=== PATIENT | female | born 1965 | race Two or more races ===

== ENCOUNTER 2024-06-18 15:01 | Outpatient (AMB) | payer BC, SELFPAY ==
[2024-06-18 15:39] VITALS: BP 148/86; PULSE 88; RESP 19; TEMP 36.7; O2SAT 97; BMI 46.6
--- NOTE | 2024-06-18 15:39 | PD.GSCLVISIT ---
Vital Signs - [facility] 06/18/24 15:39 Height 1.6 m Height Method Stated Weight 119.408 kg Weight Measurement Method Standing Scale BMI 46.6 BP 148/86 H Blood Pressure Source Automatic Cuff Blood Pressure Location Right Upper Arm Position Sitting Respiration 19 Pulse 88 Pulse Source Monitor Temp 98.0 F Temp Source Temporal Artery Scan Pulse Oximetry (%) 97 Oxygen Delivery Method Room Air Med/Allergies Allergies & Medications Allergies No Known Allergies Allergy (Verified 06/18/24 15:40) Medication Reconciliation metformin 500 mg tablet 500 mg PO QDAY 04/11/24 [History Confirmed 06/18/24] tramadol 50 mg tablet 50 mg PO BID PRN 04/11/24 [History Confirmed 06/18/24] MA Intake Visit Data Collection New Patient or Established: Established Patient (seen at [facility] within 3 years) Seen by Clinical Staff ONLY (RN/NELLY): No Reason for Visit:: MRI RESULTS Pain Present Currently: No Lead Business Systems Analyst Required: Yes PCP or OBGYN visit in last 3 months: Yes Hx Now: No Do You Feel Safe at Home: Yes Authorities Contacted: N/A Smoking Status Smoking Status: Never smoker Immunization / Flu Flu Vaccine in the Last 12 Months: Yes Flu Vaccine Exclusion Criteria: Already Received Past Medical History Past Medical History RESPIRATORY: Negative Smoking or Smoking Exposure Social History SMOKING STATUS: Smoking status: Never smoker HPI HPI Narrative Spoke to pt with in-person senior benefits specialist 58F with HTN, DMII here for follow up of posterior neck mass. Pt reports it remains very bothersome, making it difficult for her to lie down and sleep. She denies any new complaints ROS Review of Systems Systems Reviewed: All systems reviewed, normal except as documented Objective/Exam General General Appearance: alert, cooperative and well groomed Resp Respiratory exam: Absent respiratory distress Back Back exam: Present other (upper back with large lipoma in the center, no overlying skin changes) Results MRI showing fatty deposition Assessment & Plan Diagnosis / Problem List (1) Neck mass: Status: Acute Assessment & Plan: 58F with HTN, DMII here for follow up of posterior neck mass consistent with a lipoma. I explained benefits/risks of excision including bleeding and infection. Pt expressed understanding and agrees to proceed Office Procedures GNS Level of Care Nursing/Assessment Patient Status: Established Patient Nursing Assessment/Reassesment: Medication Reconciliation, Update PMH in EMR and Vital Signs Coordination of Care: Complex Care and Chronic Disease 1-5, Education Complex Pt/Fam, Consent,records obtained, informed consent, Results/Orders obtained and Staff clarify orders Special Needs: Language special needs Established Patient Charge Established Patient Point Assignment: 95 Established Patient Point Charge: EP Level 3 (80-115) Patient Portal Questionaires Social History Tobacco History Smoking Status: Never smoker Domestic Abuse History Do You Feel Safe at Home: Yes Review of Systems Report any current symptoms Only answer those that you have currently: Past Medical History Past Medical History Have you ever been diagnosed with any of the following: Respiratory Problems Smoking: No Smoking Exposure: No
== END 2024-06-18 16:25 | disposition home or self-care (01) ==
LOC: HODSRG 15:01
PROVIDERS: PCP Nurse Practitioner Family; Referring Provider Nurse Practitioner Family; Supervising Provider Surgery; Visit Provider Surgery
DX: R22.1 Localized swelling, mass and lump, neck (principal)
CPT/HCPCS: 99213; G0463

== ENCOUNTER 2024-07-17 15:02 | Outpatient (AMB) | payer BC, SELFPAY ==
--- NOTE | 2024-07-17 15:35 | PD.ORTHCLVIS ---
Med/Allergies Allergies & Medications Allergies No Known Allergies Allergy (Verified 07/17/24 10:23) Subjective Visit Visit for: knee (RIGHT KNEE PAIN) Immunization / Flu Flu Vaccine in the Last 12 Months: No Flu Vaccine Exclusion Criteria: Refused by Patient History of Present Illness Chief complaint: Right knee pain Patient is a 58-year-old female who have seen in the past for severe right knee arthritis. We have done 3 prior injections in the past. She is also tried anti-inflammatories. We will continue with nonoperative treatment because of her weight. The injections lasted 2 months in the past Pain Pain level (0-10): 8 Pain duration: CONSTANT Pain location: inside (medial), outside (lateral) and posterior Pain quality: sharp and aching Pain timing: night, increases with activity and stairs Associated signs & symptoms: numbness, weakness and stiffness Ambulatory data Ambulatory device: none Treatments Improvement with previous injections: No Improvement with PT: No Improvement with NSAIDS: no Review of Systems Review of Systems: All systems negative unless otherwise noted in HPI. Exam Exam Patient is in no acute distress and is cooperative with the examination today. Breathing is nonlabored. Patient has a normal mood and affect. Bilateral extremities were evaluated and demonstrates sensation intact to light touch. Palpable pedal pulses are present. No significant edema is present. Bilateral hips were examined. The patient has no pain with log roll of the hips. Internal rotation to 30 degrees and external rotation to 30 degrees is painless. Negative FADIR. Left knee was examined today. The left knee is in reasonable alignment. Range of motion from 0-120 degrees. Knee is stable to varus and valgus as well as AP translation with <5mm. Patient has a negative McMurrays. There is no pain with patellofemoral compression and no crepitus noted. The knee is nontender to palpation. The right knee was also examined. The right knee is in varus alignment. Range of motion from 0-115 degrees. Knee is stable to varus and valgus as well as AP translation with <5mm. Patient has a negative McMurrays. There is no pain with patellofemoral compression and no crepitus noted. The knee is tender to palpation medially. X-rays demonstrate severe arthritis with complete obliteration of the medial joint space and osteophytes. Assessment and Plan Problem List (1) Arthritis of right knee: Status: Acute Plan: Patient is a 58-year-old female with severe right knee arthritis. She had a fall recently. We Will get bilateral knee x-rays to make sure there is no fracture. We will likely recommend injections after her recent surgery for her neck Past Medical History Past Medical History Have you ever been diagnosed with any of the following: Cardiology Problems Angina: Yes (Mild and short episodes. MD told her is stress related) Congestive Heart Failure: No Hypertension: Yes Respiratory Problems Chronic Obstructive Pulmonary Disease (COPD): No Smoking: No Smoking Exposure: No Stomache/Intestinal Problems Hepatitis: No Genital/Urinary Problems Renal Disease: No Reproductive Problems Previous Pregnancies: Yes (x5) Musculoskeletal Problems Arthritis: Yes Endocrine Problems Diabetes Mellitus Type 1: No Diabetes Mellitus Type 2: Yes Psychologic Problems Anxiety: Yes Other Problems Falls: Yes Blood Transfusions: No Anesthesia Reactions: No Chemotherapy: No Radiation Therapy: No Chicken Pox: Yes Measles: Yes Mumps: Yes Cancer: No
[2024-07-17 15:41] VITALS: BP 167/83; PULSE 74; RESP 19; TEMP 36.4; O2SAT 95; BMI 46.4
--- NOTE | 2024-07-17 15:47 | PD.ORTHCLVIS ---
Vital signs 07/17/24 15:41 Height 1.6 m Height Method Stated Weight 118.926 kg Weight Measurement Method Standing Scale BMI 46.4 BP 167/83 H Blood Pressure Source Automatic Cuff Blood Pressure Location Left Upper Arm Position Sitting Respiration 19 Pulse 74 Pulse Source Monitor Temp 97.6 F Temp Source Temporal Artery Scan Pulse Oximetry (%) 95 Oxygen Delivery Method Room Air Med/Allergies Allergies & Medications Allergies No Known Allergies Allergy (Verified 07/17/24 15:47) Medication Reconciliation metformin 500 mg tablet 500 mg PO HS 04/11/24 [History Confirmed 07/17/24] tramadol 50 mg tablet 50 mg PO BID PRN Pain, Moderate 04/11/24 [History Confirmed 07/17/24] losartan 50 mg tablet 50 mg PO HS 07/17/24 [History Confirmed 07/17/24] meloxicam 7.5 mg tablet 7.5 mg PO QDAY PRN Pain, Mild 07/17/24 [History Confirmed 07/17/24] Subjective Visit Visit for: follow up visit and knee Immunization / Flu Flu Vaccine in the Last 12 Months: No Flu Vaccine Exclusion Criteria: No Exclusion Criteria Pain Pain level (0-10): 6 Pain duration: WITH MOVEMENT Pain location: inside (medial) Pain quality: aching Pain timing: increases with activity Associated signs & symptoms: numbness, weakness and stiffness Ambulatory data Ambulatory device: none Treatments Improvement with previous injections: No Improvement with PT: No Improvement with NSAIDS: no Review of Systems Review of Systems: All systems negative unless otherwise noted in HPI. Assessment and Plan Problem List (1) Arthritis of right knee: Status: Acute Office Procedures GNS Level of Care Nursing/Assessment Patient Status: Established Patient Nursing Assessment/Reassesment: Medication Reconciliation, Update PMH in EMR and Vital Signs Coordination of Care: Complex Care and Chronic Disease 1-5, Education Complex Pt/Fam, Consent,records obtained, informed consent, 1 Ins Authorization, Lab and Imaging orders, Results/Orders obtained and Staff clarify orders Special Needs: Language special needs Established Patient Charge Established Patient Point Assignment: 125 Established Patient Point Charge: EP Level 3 (80-115) Past Medical History Past Medical History Have you ever been diagnosed with any of the following: Cardiology Problems Angina: Yes (Mild and short episodes. told her is stress related) Congestive Heart Failure: No Hypertension: Yes Respiratory Problems Chronic Obstructive Pulmonary Disease (COPD): No Smoking: No Smoking Exposure: No Stomache/Intestinal Problems Hepatitis: No Genital/Urinary Problems Renal Disease: No Reproductive Problems Previous Pregnancies: Yes (x5) Musculoskeletal Problems Arthritis: Yes Endocrine Problems Diabetes Mellitus Type 1: No Diabetes Mellitus Type 2: Yes Psychologic Problems Anxiety: Yes Other Problems Falls: Yes Blood Transfusions: No Anesthesia Reactions: No Chemotherapy: No Radiation Therapy: No Chicken Pox: Yes Measles: Yes Mumps: Yes Cancer: No
== END 2024-07-17 15:40 | disposition home or self-care (01) ==
LOC: HODSRG 15:02
PROVIDERS: PCP Nurse Practitioner Family; Referring Provider Nurse Practitioner Family; Supervising Provider Orthopaedic Surgery Adult Reconstructive Orthopaedic Surgery; Visit Provider Orthopaedic Surgery Adult Reconstructive Orthopaedic Surgery
DX: M17.11 Unilateral primary osteoarthritis, right knee (principal); I10 Essential (primary) hypertension
CPT/HCPCS: 99213; G0463

== ENCOUNTER → 2024-07-17 | Outpatient (CLI) | payer BC, SELFPAY ==
--- NOTE | 2024-07-17 15:56 | XR_ITS ---
Examination: Bilateral knees 2 views Right lateral knee left lateral knee 2 views Bilateral axial knees single view TECHNIQUE: Bilateral AP knees standing single view, bilateral PA knees standing single view 30 degrees flexion Staining right lateral knee left lateral knee 2 views Bilateral axial knees single view total 5 views Exam date and time: July 17, 2024 1717 hours INDICATIONS: Patient fell 7 days ago with injury to both knees, bilateral knee pain FINDINGS: Significant osteopenia No fracture or dislocation involving either knee Advanced narrowing medial joint spaces, [id number] medial joint space left knee Advanced osteoarthritis lateral patellofemoral joints bilaterally No patellar dislocation IMPRESSION: No knee fractures Advanced tricompartment osteoarthritis, [id number] narrowing medial joint space left knee
== END | disposition home or self-care (01) ==
PROVIDERS: PCP Nurse Practitioner Family; Referring Provider Orthopaedic Surgery Adult Reconstructive Orthopaedic Surgery; Visit Provider Orthopaedic Surgery Adult Reconstructive Orthopaedic Surgery
DX: M17.12 Unilateral primary osteoarthritis, left knee (principal); S89.92XA Unspecified injury of left lower leg, initial encounter; S89.91XA Unspecified injury of right lower leg, initial encounter; W19.XXXA Unspecified fall, initial encounter
CPT/HCPCS: 73564

== ENCOUNTER 2024-07-18 09:05 | Day surgery (SDC) | payer BC, SELFPAY ==
[2024-07-17 10:27] VITALS: BMI 45.0
--- NOTE | 2024-07-17 10:42 | EKG_ITS ---
[facility] Test Date: 2024-07-17 Pat Name: ARJUN TUCKER Department: Room: - Gender: Female Health Safety Coordinator: GOLD : 1965 Requested By: Caesar Chávez Order Number: [id number] Reading MD: Caesar Chávez Measurements Intervals [place] Rate: 76 P: 50 TN: 159 QRS: 14 QRSD: 77 T: 24 QT: 365 QTc: 410 Interpretive Statements SINUS RHYTHM NONSPECIFIC T-WAVE ABNORMALITY No previous ECG available for comparison /[id number]/S0/[id number]
[2024-07-17 11:27] LABS: Basophils # (Auto) 0.1 Thou/mm3 (0.0-0.2); Basophils % (Auto) 1 % (0-2.5); Eosinophils # (Auto) 0.2 Thou/mm3 (0.0-0.5); Eosinophils % (Auto) 2 % (0-10); Hematocrit 42.9 % (36.0-46.0); Hemoglobin 13.7 g/dL (12.0-16.0); Immature Granulocytes % (Auto) 1 % (0-0); Immature Granulocytes Auto 0.05 Thou/mm3 (0.00-0.00); Lymphocytes # (Auto) 2.5 Thou/mm3 (1.0-4.8); Lymphocytes % (Auto) 23 % (10-50); Mean Corpuscular HGB Conc 31.9 g/dl (31.0-37.0); Mean Corpuscular Hemoglobin 27.4 pg (25.0-35.0); Mean Corpuscular Volume 86 fL (80-100); Monocytes # (Auto) 0.9 Thou/mm3 (0.0-0.8); Monocytes % (Auto) 8 % (0-12); Neutrophils # (Auto) 7.2 Thou/mm3 (1.8-7.7); Neutrophils % (Auto) 66 % (37-80); Nucleated Red Blood Cell % 0 /100 WBC (0); Platelet Count 291 Thou/mm3 (140-440); RDW Standard Deviation 44.2 fL (36.4-46.3); White Blood Count 10.9 Thou/mm3 (3.6-11.0)
[2024-07-17 11:43] LABS: Partial Thromboplastin Time 25.6 Seconds (22.0-36.0); Prothrombin Time 10.8 Seconds (9.0-12.2)
[2024-07-17 11:59] LABS: Alanine Aminotransferase 18 U/L (10-49); Albumin, Serum 4.6 gm/dL (3.5-5.0); Albumin/Globulin Ratio 1.8 (1.2-2.2); Alkaline Phosphatase 109 U/L (46-116); Anion Gap 8 (7-16); Aspartate Amino Transferase 21 U/L (0-34); BUN/Creatinine Ratio 14 Ratio (12-20); Bilirubin,Total 0.4 mg/dL (0.3-1.2); Blood Urea Nitrogen 11 mg/dL (9-23); Calcium 9.8 mg/dL (8.3-10.6); Calcium (Corrected) 9.8 mg/dL (8.5-10.1); Carbon Dioxide 27.7 mMol/L (20.0-31.0); Chloride 103 mMol/L (98-107); Creatinine (Component) 0.8 mg/dL (0.6-1.3); Estimated Creatinine Clearance 96.2 mL/min (>60); Globulin 2.6 gm/dL (2.3-3.5); Glucose 154 mg/dL (74-106); Osmolality,Calculated 279 (275-295); Potassium 3.8 mMol/L (3.4-5.1); Sodium 139 mMol/L (136-145); Total Protein 7.2 gm/dL (5.7-8.2); eGFR > 60 See Note
[2024-07-18] VITALS (10 sets, daily range): BP systolic 120–160; BP diastolic 57–93; PULSE 68–93; RESP 12–19; TEMP 36.2–36.6; O2SAT 93–99; BMI 44.8
[2024-07-18] MEDS: RINGERS LACTATED 500 ML 500 ML 20 ML IV (09:44)
--- NOTE | 2024-07-18 14:23 | SUR.PHASEI ---
1423: Pt. wakes to name then drifts back to sleep, vitals stable, breathing unlabored, no signs of distress, dressing to upper back CDI, no active bleed noted, report received from Asif JENSEN and Curtis GARCÍA.
--- NOTE | 2024-07-18 14:35 | PD.SUROPNT ---
Date of Procedure 07/18/24 Pre Op Diagnosis Upper back lipoma Post Op Diagnosis Same Procedure Excision of upper back lipoma Findings Large upper back lipoma removed in 2 pieces Procedure Description After discussion of risk and benefits, patient was brought to the operating room, SCDs were placed and general anesthesia was induced. She received preoperative antibiotics and was placed in right lateral decubitus position with proper padding. Patient was prepped and draped in usual sterile fashion. After timeout a transverse elliptical incision was planned at the upper back lipoma site. The incision was 6 cm in transverse dimension and 2 cm in craniocaudal dimension. The incision was infiltrated with half percent Marcaine and skin was incised with a #15 blade. The tissues were dissected with electrocautery and the lipoma was soon encountered. The lipoma was dissected from surrounding tissues circumferentially using electrocautery. A large portion was removed intact. Additional portion was seen on the left lateral aspect of the incision and this was again excised circumferentially with electrocautery. The wound bed was irrigated and hemostasis was achieved with electrocautery. The incision was closed with 2-0 Vicryl interrupted sutures followed by 4-0 nylon interrupted sutures. The incision was covered with Telfa, gauze and Tegaderm. Patient was returned to supine position and extubated without complication. She was brought to PACU in stable condition Pathology / specimen Other (Upper back lipoma) Estimated Blood Loss 25 Surgeon Rena Sanders MD Surgical Staff Operation Date: 07/18/24 11:15 Case Staff BEHAVIORAL HEALTH CASE MANAGER: Robert Delacruz RN First Assistant: Mariann Toney
--- NOTE | 2024-07-18 14:37 | ESDS_ITS ---
Planned Discharge Date 07/18/24 DS: Providers Provider Primary care physician: [facility] Attending Provider on Admission: Rena Sanders MD Attending Provider on DC: Rena Sanders MD Discharging Provider: Rena Sanders MD Diagnosis Discharge Diagnosis (1) Neck mass: Status: Acute Problem List Completed Was Problem List Reviewed/Reconciled?: Yes Exam Vital Signs Temp Pulse Resp BP Pulse Ox O2 Flow Rate 97.1 F 84 14 157/90 H 98 6 07/18/24 14:23 07/18/24 14:23 07/18/24 14:23 07/18/24 14:23 07/18/24 14:23 07/18/24 14:23 Constitutional Constitutional: no acute distress Routine Respiratory Exam Respiratory: Present no resp distress Discharge Plan Plan Patient Disposition: HOME (Self Care) Prescriptions/Referrals Prescriptions/Med Rec: New tramadol 50 mg tablet 50 mg PO Q8H PRN (Reason: pain) Qty: 10 0RF No Action metformin 500 mg tablet 500 mg PO HS tramadol 50 mg tablet 50 mg PO BID PRN (Reason: Pain, Moderate) losartan 50 mg tablet 50 mg PO HS Patient Comments: take 1 tablet by mouth once daily meloxicam 7.5 mg tablet 7.5 mg PO QDAY PRN (Reason: Pain, Mild) Patient Comments: take 1 tablet by mouth once daily Referrals: Rena Sanders MD [Physician] - (You will receive a phone call to confirm a follow-up appointment with me in 2 weeks) [facility] [Primary Care Provider] - Patient/Caregiver Discharge Instructions Other Discharge Activity Instructions:: You may remove your outer dressing and resume showering on 07/20 Otherwise keep incision clean and dry If you develop worsening pain, fever, redness or drainage please call the office or seek care in ER Your stitches will be removed at your follow-up appointment Education Materials: Incision Care Print Language: Serbian Stand Alone Forms: Rajwinder Award Info., Patient Portal Info Letter Discharge Order Discharge Orders: Discharge (Routine); Ordered 07/18/24 Ordered By: Rena Sanders Results Results: Laboratory Laboratory results: results reviewed Results: Imaging Imaging narrative: MRI reviewed Procedures Procedure Date 07/18/24 Procedures Excision of upper back lipoma
[2024-07-18] MEDS: HYDROmorphone INJ 2 MG/ML VIAL 0.4 MG IVP ×2 (14:54→15:06)
[2024-07-18] MEDS: ONDANSETRON INJ 2 MG/ML INJ 2 ML 4 MG IVP (15:28)
--- NOTE | 2024-07-18 16:00 | SUR.PHASEII ---
1600: Pt. AAOx4, vitals stable, breathing unlabored, no complaint of pain or nausea, dressing to posterior neck CDI, no active bleed noted, pt. tolerated sips of water well, pt. ambulated to wheelchair with minimal assist and steady gait, gave discharge instructions to the pt. and her ride, both verbalized understanding and had no further questions. Pt. left with all personal belongings. Pt. took awhile to leave due to her being extremely tired and not being able to stand up with first attempt of getting her to go home. Nurse let pt. rest a little longer and was successful with second attempt and discharging pt.
== END 2024-07-18 16:00 | disposition home or self-care (01) ==
PROVIDERS: Anesthesiology; PCP Nurse Practitioner Family; Referring Provider Surgery; Visit Provider Surgery
PROC: (CPT 21930; principal; 2024-07-18 11:00)
DX: D17.1 Benign lipomatous neoplasm of skin and subcutaneous tissue of trunk (principal); Z01.810 Encounter for preprocedural cardiovascular examination
CPT/HCPCS: 21930; 36415; 80048; 80053; 85025; 85610; 85730; 93005; A4649; J0131; J0690; J1885; J2250; J2405; J2704; J3010; J3490; J7120

== ENCOUNTER 2024-08-02 13:03 | Outpatient (AMB) | payer BC, SELFPAY ==
--- NOTE | 2024-08-02 13:11 | GSCOFFNT_ITS ---
Vital Signs - [facility] 08/02/24 13:12 Height 1.63 m Height Method Stated Weight 118.87 kg Weight Measurement Method Standing Scale BMI 44.7 BP 165/88 H Blood Pressure Source Automatic Cuff Blood Pressure Location Right Upper Arm Position Sitting Respiration 18 Pulse 92 Pulse Source Monitor Temp 97.5 F Temp Source Temporal Artery Scan Pulse Oximetry (%) 97 Oxygen Delivery Method Room Air Med/Allergies Allergies & Medications Allergies No Known Allergies Allergy (Verified 08/02/24 13:12) Medication Reconciliation metformin 500 mg tablet 500 mg PO HS 04/11/24 [History Confirmed 08/02/24] tramadol 50 mg tablet 50 mg PO BID PRN Pain, Moderate 04/11/24 [History Confirmed 08/02/24] losartan 50 mg tablet 50 mg PO HS 07/17/24 [History Confirmed 08/02/24] meloxicam 7.5 mg tablet 7.5 mg PO QDAY PRN Pain, Mild 07/17/24 [History Confirmed 08/02/24] tramadol 50 mg tablet 50 mg PO Q8H PRN pain #10 tabs 07/18/24 [Rx Confirmed 08/02/24] MA Intake Visit Data Collection New Patient or Established: Established Patient (seen at [facility] within 3 years) Seen by Clinical Staff ONLY (RN/MA): No Reason for Visit:: FOLLOW UP NECK LUMP REMOVAL Pain Present Currently: Yes Pain Location: Unable to identify Pain scale:: 8 Impregnator And Drier Helper Required: Yes PCP or OBGYN visit in last 3 months: Yes Hx Now: No Do You Feel Safe at Home: Yes Authorities Contacted: N/A Smoking Status Smoking Status: Never smoker Immunization / Flu Flu Vaccine in the Last 12 Months: Yes Flu Vaccine Exclusion Criteria: Already Received Past Medical History Past Medical History NEUROLOGIC: Negative Neurological Disorders or Seizures CARDIAC: Positive Cardiac Disorders, Angina (Mild and short episodes. told her is stress related) and Hypertension; Negative Congestive Heart Failure RESPIRATORY: Negative Chronic Obstructive Pulmonary Disease (COPD), Smoking or Smoking Exposure GASTROINTESTINAL: Negative Gastrointestinal Disorders or Hepatitis GENITOURINARY: Negative Genitourinary Disorders or Renal Disease REPRODUCTIVE: Positive Previous Pregnancies (x5) MUSCULOSKELETAL: Positive Arthritis ENDOCRINE: Positive Endocrine Disorders and Diabetes Mellitus Type 2; Negative Diabetes Mellitus Type 1 HEMATOLOGIC: Negative Blood Disorders PSYCHO/SOCIAL: Positive Anxiety OTHER HISTORY: Positive Falls, Chicken Pox, Measles and Mumps; Negative Autoimmune Disease, Blood Transfusions, Blood Transfusion Reaction, Anesthesia Reactions, Chemotherapy, Radiation Therapy or Cancer Family History FAMILY HISTORY: Negative Family Cardiac Disorders or Family Anesthesia Reaction Surgical History SURGICAL: Positive Tubal Ligation and Section (x3) Social History SMOKING STATUS: Smoking status: Never smoker ALCOHOL: Alcohol Intake: Never HOUSING: Housing: Apartment HPI HPI Narrative 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 Pt reports since surgery she has had difficulty lifting her right arm all the way, but this has gradually improved. She has some pain at the incision site which is mild, and has not had any drainage although feels that there is subcutaneous fluid. Overall she feels better now that the lesion is out ROS Review of Systems Systems Reviewed: All systems reviewed, normal except as documented Objective/Exam General General Appearance: alert, cooperative and well groomed Neck Neck exam: Present other Resp Respiratory exam: Absent respiratory distress Back Back exam: Present other (upper back incision with minimal surrounding erythema, no fluctuance or tenderness, no drainage, sutures removed) Results Pathology of mass consistent with benign lipoma Assessment & Plan Diagnosis / Problem List (1) Lipoma of back: Status: Acute Assessment & Plan: 58F s/p excision of upper back lipoma 07/18 recovering well overall Plan: F/u in 2 weeks Office Procedures GNS Level of Care Nursing/Assessment Patient Status: Established Patient Nursing Assessment/Reassesment: Medication Reconciliation, Update PMH in EMR and Vital Signs Coordination of Care: Complex Care and Chronic Disease 1-5, Consent,records obtained, informed consent, Education Simp Pt/Fam, Results/Orders obtained and Staff clarify orders Special Needs: Language special needs Miscellaneous Interventions: Dressing placement or removal and Wound Cleaning/Preperation Established Patient Charge Established Patient Point Assignment: 135 Established Patient Point Charge: Level 4 (120-155) Patient Portal Questionaires Social History Living Situation History Housing: Apartment Tobacco History Smoking Status: Never smoker Alcohol History Alcohol Intake: Never Domestic Abuse History Do You Feel Safe at Home: Yes Review of Systems Report any current symptoms Only answer those that you have currently: Past Medical History Past Medical History Have you ever been diagnosed with any of the following: Neurological Problems Seizures: No Cardiology Problems Angina: Yes (Mild and short episodes. told her is stress related) Congestive Heart Failure: No Hypertension: Yes Respiratory Problems Chronic Obstructive Pulmonary Disease (COPD): No Smoking: No Smoking Exposure: No Stomache/Intestinal Problems Hepatitis: No Genital/Urinary Problems Renal Disease: No Reproductive Problems Previous Pregnancies: Yes (x5) Musculoskeletal Problems Arthritis: Yes Endocrine Problems Diabetes Mellitus Type 1: No Diabetes Mellitus Type 2: Yes Psychologic Problems Anxiety: Yes Other Problems Autoimmune Disease: No Falls: Yes Blood Transfusions: No Blood Transfusion Reaction: No Anesthesia Reactions: No Chemotherapy: No Radiation Therapy: No Chicken Pox: Yes Measles: Yes Mumps: Yes Cancer: No
[2024-08-02 13:12] VITALS: BP 165/88; PULSE 92; RESP 18; TEMP 36.4; O2SAT 97; BMI 44.7
== END 2024-08-02 13:22 | disposition home or self-care (01) ==
LOC: HODSRG 13:03
PROVIDERS: PCP Nurse Practitioner Family; Referring Provider Nurse Practitioner Family; Supervising Provider Surgery; Visit Provider Surgery
DX: Z48.817 Encounter for surgical aftercare following surgery on the skin and subcutaneous tissue (principal); D17.1 Benign lipomatous neoplasm of skin and subcutaneous tissue of trunk
CPT/HCPCS: 99214; G0463

== ENCOUNTER 2024-08-03 11:04 | Outpatient (AMB) | payer BC, SELFPAY ==
--- NOTE | 2024-08-03 11:01 | ORTHONT_ITS ---
Med/Allergies Allergies & Medications Allergies No Known Allergies Allergy (Verified 08/03/24 11:01) Medication Reconciliation metformin 500 mg tablet 500 mg PO HS 04/11/24 [History Confirmed 08/03/24] tramadol 50 mg tablet 50 mg PO BID PRN Pain, Moderate 04/11/24 [History Confirmed 08/03/24] losartan 50 mg tablet 50 mg PO HS 07/17/24 [History Confirmed 08/03/24] meloxicam 7.5 mg tablet 7.5 mg PO QDAY PRN Pain, Mild 07/17/24 [History Confirmed 08/03/24] tramadol 50 mg tablet 50 mg PO Q8H PRN pain #10 tabs 07/18/24 [Rx Confirmed 08/03/24] Subjective Visit Visit for: follow up visit and knee (BILATERAL) Immunization / Flu Flu Vaccine in the Last 12 Months: No Flu Vaccine Exclusion Criteria: Already Received History of Present Illness Chief complaint: Bilateral knee pain Patient is a pleasant 58-year-old female with bilateral knee pain and bilateral knee arthritis. She has tried multiple injections. She does have obesity and her BMI is 45. I discussed with her that she likely has to get to a BMI of 40 in order to get surgery in order to minimize complications. She has tried anti- inflammatories as well reports the pain is miserable Pain Pain level (0-10): 8 Pain duration: ALL DAY Pain location: inside (medial) and outside (lateral) Pain quality: dull and aching Pain timing: increases with activity Associated signs & symptoms: none Ambulatory data Ambulatory device: cane and none Treatments Improvement with previous injections: No Improvement with PT: No Improvement with NSAIDS: no Review of Systems Review of Systems: All systems negative unless otherwise noted in HPI. Assessment and Plan Problem List (1) Arthritis of right knee: Status: Acute Plan: Patient is a 58-year-old female with bilateral knee arthritis that is severe on x-rays. The right and left are equal severity. We discussed with her that this is typically treated nonoperatively at her current BMI as she is not a operative candidate. She is at high risk for infection if she were to get surgery at her current weight. We discussed nonoperative treatment including injections. Will give her a cortisone injection at the next visit Office Procedures GNS Level of Care Nursing/Assessment Patient Status: Established Patient Nursing Assessment/Reassesment: Medication Reconciliation, Update PMH in EMR and Vital Signs Coordination of Care: Complex Care and Chronic Disease 1-5, Education Complex Pt/Fam, Consent,records obtained, informed consent, Results/Orders obtained and Staff clarify orders Special Needs: Language special needs Established Patient Charge Established Patient Point Assignment: 95 Telehealth Telemed Phone/Video with patient at home & Dr,PA,MANUFACTURING MANAGEMENT ASSOCIATE: Yes
== END 2024-08-03 11:07 | disposition home or self-care (01) ==
LOC: HODSRG 11:04
PROVIDERS: PCP Nurse Practitioner Family; Referring Provider Nurse Practitioner Family; Supervising Provider Orthopaedic Surgery Adult Reconstructive Orthopaedic Surgery; Visit Provider Orthopaedic Surgery Adult Reconstructive Orthopaedic Surgery
DX: M17.0 Bilateral primary osteoarthritis of knee (principal); M25.562 Pain in left knee; M25.561 Pain in right knee; E66.01 Morbid (severe) obesity due to excess calories; Z68.42 Body mass index [BMI] 45.0-49.9, adult
CPT/HCPCS: 99212; G0463

== ENCOUNTER 2024-08-14 13:02 | Outpatient (AMB) | payer BC, SELFPAY ==
[2024-08-14 13:36] VITALS: BP 158/85; PULSE 90; TEMP 36.7; O2SAT 96; BMI 44.7
--- NOTE | 2024-08-14 13:36 | ORTHONT_ITS ---
Vital signs 08/14/24 13:36 Height 1.63 m Height Method Stated Weight 118.841 kg Weight Measurement Method Standing Scale BMI 44.7 BP 158/85 H Blood Pressure Source Automatic Cuff Blood Pressure Location Right Upper Arm Position Sitting Pulse 90 Pulse Source Monitor Temp 98.0 F Temp Source Temporal Artery Scan Pulse Oximetry (%) 96 Oxygen Delivery Method Room Air Med/Allergies Allergies & Medications Allergies No Known Allergies Allergy (Verified 08/14/24 13:38) Medication Reconciliation metformin 500 mg tablet 500 mg PO HS 04/11/24 [History Confirmed 08/14/24] tramadol 50 mg tablet 50 mg PO BID PRN Pain, Moderate 04/11/24 [History Confirmed 08/14/24] losartan 50 mg tablet 50 mg PO HS 07/17/24 [History Confirmed 08/14/24] meloxicam 7.5 mg tablet 7.5 mg PO QDAY PRN Pain, Mild 07/17/24 [History Confirmed 08/14/24] tramadol 50 mg tablet 50 mg PO Q8H PRN pain #10 tabs 07/18/24 [Rx Confirmed 08/14/24] Exam Exam Patient is in no acute distress and is cooperative with the examination today. Breathing is nonlabored. Patient has a normal mood and affect. Bilateral extremities were evaluated and demonstrates sensation intact to light touch. Palpable pedal pulses are present. No significant edema is present. Bilateral hips were examined. The patient has no pain with log roll of the hips. Internal rotation to 30 degrees and external rotation to 30 degrees is painless. Negative FADIR. Left knee was examined today. The left knee is in reasonable alignment. Range of motion from 0-120 degrees. Knee is stable to varus and valgus as well as AP translation with <5mm. Patient has a negative McMurrays. There is no pain with patellofemoral compression and no crepitus noted. The knee is nontender to palpation. The right knee was also examined. The right knee is in varus alignment. Range of motion from 0-115 degrees. Knee is stable to varus and valgus as well as AP translation with <5mm. Patient has a negative McMurrays. There is no pain with patellofemoral compression and no crepitus noted. The knee is tender to palpation medially. X-rays demonstrate severe arthritis with complete obliteration of the medial joint space and osteophytes. Assessment and Plan Problem List (1) Arthritis of right knee: Status: Acute Plan: Patient is a 58-year-old female with bilateral knee arthritis that is severe on x-rays. The right and left are equal severity. We discussed with her that this is typically treated nonoperatively at her current BMI as she is not a operative candidate. She is at high risk for infection if she were to get surgery at her current weight. We discussed nonoperative treatment including injections. Recommend knee cortisone injections as patient would like to proceed with conservative treatment at this time. The risks and benefits of the procedure were reviewed with the patient and patient gave verbal consent to continue with the procedure. Procedure: performed by Dr. Whelan Using sterile technique the Bilateral knees were thoroughly prepped with alcohol, and approximately 1 cc of Kenalog 40 mg/mL and 4 cc of 1% lidocaine was injected into each knee without resistance into the medial tibial femoral joint space. The patient tolerated the procedure. Office Procedures GNS Level of Care Nursing/Assessment Patient Status: Established Patient Nursing Assessment/Reassesment: Medication Reconciliation, Update PMH in EMR and Vital Signs Coordination of Care: Complex Care and Chronic Disease 1-5, Education Complex Pt/Fam, Consent,records obtained, informed consent, Results/Orders obtained and Staff clarify orders Special Needs: Language special needs Established Patient Charge Established Patient Point Assignment: 95 Established Patient Point Charge: EP Level 3 (80-115) Surgical Proc/IM SQ injection Major Surgical Procedure: Yes (BILATERAL KNEE INJECTIONS ) Medication Given Medication Given Medication Given: Yes Documented Dose Given: 8 Route: Infiitration Medication Given Medication Given Medication Given: Yes Documented Dose Given: 2 Route: Infiitration Office Meds Xylocaine 10 mg/mL (1 %) injection solution Performing Provider: Juan Whelan MD Performing Location: [facility] Administered by: Juan Whelan MD on 08/14/24 14:37 Dose Route Admin Location Dispensed Lot Number Expiration Date [facility] Nuclear [employer]iation [employer] 40 mL Infiltration 40 mL [id number] [employer] KABI triamcinolone acetonide 40 mg/mL suspension for injection Performing Provider: Juan Whelan MD Performing Location: [facility] Administered by: Juan Whelan MD on 08/14/24 14:37 Dose Route Admin Location Dispensed Lot Number Expiration Date [facility] Nuclear Radiation Engineer 80 mg intra-articular 2 mL [id number] AGUEDA PARENTERAL MA Intake Visit Data Collection New Patient or Established: Established Patient (seen at [facility] within 3 years) Reason for Visit:: REQ BILATERAL KNEE INJECTIONS Seen by Clinical Staff ONLY (RN/MA): No Verbal consent obtained for Telemed visit?: No Home Teaching Grades 9 Thru 12 Teacher Required: Yes PCP or OBGYN visit in last 3 months: Yes Hx Now: No Do You Feel Safe at Home: Yes Authorities Contacted: N/A Questionairres Past Medical History Past Medical History Have you ever been diagnosed with any of the following: Neurological Problems Seizures: No Cardiology Problems Angina: Yes (Mild and short episodes. told her is stress related) Congestive Heart Failure: No Hypertension: Yes Respiratory Problems Chronic Obstructive Pulmonary Disease (COPD): No Smoking: No Smoking Exposure: No Stomache/Intestinal Problems Hepatitis: No Genital/Urinary Problems Renal Disease: No Reproductive Problems Previous Pregnancies: Yes (x5) Musculoskeletal Problems Arthritis: Yes Endocrine Problems Diabetes Mellitus Type 1: No Diabetes Mellitus Type 2: Yes Psychologic Problems Anxiety: Yes Other Problems Falls: Yes Blood Transfusions: No Blood Transfusion Reaction: No Anesthesia Reactions: No Chemotherapy: No Radiation Therapy: No Chicken Pox: Yes Measles: Yes Mumps: Yes Cancer: No Surgical History Additional Surgical History: LIPOMA EXCISION SX 08/02/24 Subjective Visit Visit for: follow up visit, knee and injections Immunization / Flu Flu Vaccine in the Last 12 Months: No Flu Vaccine Exclusion Criteria: No Exclusion Criteria History of Present Illness Chief complaint: REQUESTING BILATERAL KNEE INJECTIONS Patient is a pleasant 58-year-old female with bilateral knee pain and bilateral knee arthritis. She has tried multiple injections. She does have obesity and her BMI is 45. I discussed with her that she likely has to get to a BMI of 40 in order to get surgery in order to minimize complications. She has tried anti- inflammatories as well reports the pain is miserable Pain Pain level (0-10): 4 Pain duration: CONSTANT Pain location: anterior and posterior Pain quality: sharp, dull and aching Pain timing: night, increases with activity and stairs Ambulatory data Ambulatory device: none Treatments Improvement with previous injections: No Improvement with PT: No Improvement with NSAIDS: n/a Review of Systems Review of Systems: All systems negative unless otherwise noted in HPI.
== END 2024-08-14 14:05 | disposition home or self-care (01) ==
LOC: HODSRG 13:02
PROVIDERS: PCP Nurse Practitioner Family; Referring Provider Nurse Practitioner Family; Supervising Provider Orthopaedic Surgery Adult Reconstructive Orthopaedic Surgery; Visit Provider Orthopaedic Surgery Adult Reconstructive Orthopaedic Surgery
DX: M17.0 Bilateral primary osteoarthritis of knee (principal); I10 Essential (primary) hypertension; E11.9 Type 2 diabetes mellitus without complications; E66.9 Obesity, unspecified; Z68.41 Body mass index [BMI] 40.0-44.9, adult
CPT/HCPCS: 20610; 99213; J3301; J3490; G0463

== ENCOUNTER 2024-08-30 12:58 | Outpatient (AMB) | payer BC, SELFPAY ==
[2024-08-30 13:06] VITALS: BP 143/74; PULSE 84; RESP 19; TEMP 36.6; O2SAT 97; BMI 43.9
--- NOTE | 2024-08-30 13:06 | GSCOFFNT_ITS ---
Vital Signs - [facility] 08/30/24 13:06 Height 1.63 m Height Method Stated Weight 116.715 kg Weight Measurement Method Standing Scale BMI 43.9 BP 143/74 H Blood Pressure Source Automatic Cuff Blood Pressure Location Right Upper Arm Position Sitting Respiration 19 Pulse 84 Pulse Source Monitor Temp 97.9 F Temp Source Temporal Artery Scan Pulse Oximetry (%) 97 Oxygen Delivery Method Room Air Med/Allergies Allergies & Medications Allergies No Known Allergies Allergy (Verified 08/30/24 13:07) Medication Reconciliation metformin 500 mg tablet 500 mg PO HS 04/11/24 [History Confirmed 08/30/24] tramadol 50 mg tablet 50 mg PO BID PRN Pain, Moderate 04/11/24 [History Confirmed 08/30/24] losartan 50 mg tablet 50 mg PO HS 07/17/24 [History Confirmed 08/30/24] meloxicam 7.5 mg tablet 7.5 mg PO QDAY PRN Pain, Mild 07/17/24 [History Confirmed 08/30/24] tramadol 50 mg tablet 50 mg PO Q8H PRN pain #10 tabs 07/18/24 [Rx Confirmed 08/30/24] MA Intake Visit Data Collection New Patient or Established: Established Patient (seen at [facility] within 3 years) Seen by Clinical Staff ONLY (RN/MA): No Reason for Visit:: 4 WEEK FOLLOW UP Pain Present Currently: Yes Pain Location: Back Pain scale:: 4 Pain Scale Used: Booth-Ferris/Numerical Serging Machine Operator Required: Yes PCP or OBGYN visit in last 3 months: Yes Hx Now: No Do You Feel Safe at Home: Yes Authorities Contacted: N/A Smoking Status Smoking Status: Never smoker Immunization / Flu Flu Vaccine in the Last 12 Months: No Flu Vaccine Exclusion Criteria: No Exclusion Criteria Past Medical History Past Medical History NEUROLOGIC: Negative Neurological Disorders or Seizures CARDIAC: Positive Cardiac Disorders, Angina (Mild and short episodes. told her is stress related) and Hypertension; Negative Congestive Heart Failure RESPIRATORY: Negative Chronic Obstructive Pulmonary Disease (COPD), Smoking or Smoking Exposure GASTROINTESTINAL: Negative Gastrointestinal Disorders or Hepatitis GENITOURINARY: Negative Genitourinary Disorders or Renal Disease REPRODUCTIVE: Positive Previous Pregnancies (x5) MUSCULOSKELETAL: Positive Arthritis ENDOCRINE: Positive Endocrine Disorders and Diabetes Mellitus Type 2; Negative Diabetes Mellitus Type 1 HEMATOLOGIC: Negative Blood Disorders PSYCHO/SOCIAL: Positive Anxiety OTHER HISTORY: Positive Falls, Chicken Pox, Measles and Mumps; Negative Autoimmune Disease, Blood Transfusions, Blood Transfusion Reaction, Anesthesia Reactions, Chemotherapy, Radiation Therapy or Cancer Family History FAMILY HISTORY: Negative Family Cardiac Disorders or Family Anesthesia Reaction Surgical History SURGICAL: Positive Tubal Ligation and Section (x3) Social History SMOKING STATUS: Smoking status: Never smoker ALCOHOL: Alcohol Intake: Never HOUSING: Housing: Apartment HPI HPI Narrative Spoke to pt with in-person erp manager 58F s/p excision of upper back lipoma 07/18/24 here for planned follow up. Pt reports feeling better overall, with improved ROM of her right arm but she is experiencing soreness at her bilateral neck. She is not taking any medications for it. She denies any recent drainage or fever ROS Review of Systems Systems Reviewed: All systems reviewed, normal except as documented Objective/Exam General General Appearance: alert, cooperative and well groomed Resp Respiratory exam: Absent respiratory distress Back Back exam: Present other (upper back incision well-healed with no erythema, no fluctuance, no induration or drainage) Assessment & Plan Diagnosis / Problem List (1) Lipoma of back: Status: Acute Assessment & Plan: 58F s/p excision of upper back lipoma 07/18/24 here for planned follow up. Her soreness seems to be related to scar tissue; I recommended she take tylenol PRN, pt also takes meloxicam and tramadol for chronic pain and I advised her these should help as well. I also recommended she use warm compresses 15minutes at a time as needed. All questions were answered and pt is encouraged to reach out as needed Office Procedures GNS Level of Care Nursing/Assessment Patient Status: Established Patient Nursing Assessment/Reassesment: Medication Reconciliation, Update PMH in EMR and Vital Signs Coordination of Care: Complex Care and Chronic Disease 1-5, Education Complex Pt/Fam, Consent,records obtained, informed consent, Results/Orders obtained and Staff clarify orders Established Patient Charge Established Patient Point Assignment: 95 Established Patient Point Charge: EP Level 3 (80-115) Patient Portal Questionaires Social History Living Situation History Housing: Apartment Tobacco History Smoking Status: Never smoker Alcohol History Alcohol Intake: Never Domestic Abuse History Do You Feel Safe at Home: Yes Review of Systems Report any current symptoms Only answer those that you have currently: Past Medical History Past Medical History Have you ever been diagnosed with any of the following: Neurological Problems Seizures: No Cardiology Problems Angina: Yes (Mild and short episodes. told her is stress related) Congestive Heart Failure: No Hypertension: Yes Respiratory Problems Chronic Obstructive Pulmonary Disease (COPD): No Smoking: No Smoking Exposure: No Stomache/Intestinal Problems Hepatitis: No Genital/Urinary Problems Renal Disease: No Reproductive Problems Previous Pregnancies: Yes (x5) Musculoskeletal Problems Arthritis: Yes Endocrine Problems Diabetes Mellitus Type 1: No Diabetes Mellitus Type 2: Yes Psychologic Problems Anxiety: Yes Other Problems Autoimmune Disease: No Falls: Yes Blood Transfusions: No Blood Transfusion Reaction: No Anesthesia Reactions: No Chemotherapy: No Radiation Therapy: No Chicken Pox: Yes Measles: Yes Mumps: Yes Cancer: No
== END 2024-08-30 13:32 | disposition home or self-care (01) ==
LOC: HODSRG 12:58
PROVIDERS: PCP Nurse Practitioner Family; Referring Provider Nurse Practitioner Family; Supervising Provider Surgery; Visit Provider Surgery
DX: Z48.817 Encounter for surgical aftercare following surgery on the skin and subcutaneous tissue (principal)
CPT/HCPCS: 99213; G0463

== ENCOUNTER 2024-11-16 10:41 | Outpatient (AMB) | payer BC, SELFPAY ==
[2024-11-16 11:27] VITALS: BP 149/85; PULSE 87; RESP 18; TEMP 36.4; O2SAT 96; BMI 44.1
--- NOTE | 2024-11-16 11:27 | PD.ORTHCLVIS ---
Vital signs 11/16/24 11:27 Height 1.63 m Height Method Stated Weight 117.197 kg Weight Measurement Method Standing Scale BMI 44.1 BP 149/85 H Blood Pressure Source Automatic Cuff Blood Pressure Location Left Upper Arm Position Sitting Respiration 18 Pulse 87 Pulse Source Monitor Temp 97.6 F Temp Source Temporal Artery Scan Pulse Oximetry (%) 96 Oxygen Delivery Method Room Air Med/Allergies Allergies & Medications Allergies No Known Allergies Allergy (Verified 11/16/24 11:28) Medication Reconciliation metformin 500 mg tablet 500 mg PO HS 04/11/24 [History Confirmed 11/16/24] tramadol 50 mg tablet 50 mg PO BID PRN Pain, Moderate 04/11/24 [History Confirmed 11/16/24] losartan 50 mg tablet 50 mg PO HS 07/17/24 [History Confirmed 11/16/24] meloxicam 7.5 mg tablet 7.5 mg PO QDAY PRN Pain, Mild 07/17/24 [History Confirmed 11/16/24] tramadol 50 mg tablet 50 mg PO Q8H PRN pain #10 tabs 07/18/24 [Rx Confirmed 11/16/24] Exam Exam Patient is in no acute distress and is cooperative with the examination today. Breathing is nonlabored. Patient has a normal mood and affect. Bilateral extremities were evaluated and demonstrates sensation intact to light touch. Palpable pedal pulses are present. No significant edema is present. Bilateral hips were examined. The patient has no pain with log roll of the hips. Internal rotation to 30 degrees and external rotation to 30 degrees is painless. Negative FADIR. Left knee was examined today. The left knee is in reasonable alignment. Range of motion from 0-120 degrees. Knee is stable to varus and valgus as well as AP translation with <5mm. Patient has a negative McMurrays. There is no pain with patellofemoral compression and no crepitus noted. The knee is nontender to palpation. The right knee was also examined. The right knee is in varus alignment. Range of motion from 0-115 degrees. Knee is stable to varus and valgus as well as AP translation with <5mm. Patient has a negative McMurrays. There is no pain with patellofemoral compression and no crepitus noted. The knee is tender to palpation medially. X-rays demonstrate severe arthritis with complete obliteration of the medial joint space and osteophytes. Assessment and Plan Problem List (1) Arthritis of right knee: Status: Acute Plan: Patient is a 58-year-old female with bilateral knee arthritis that is severe on x-rays. The right and left are equal severity. We discussed with her that this is typically treated nonoperatively at her current BMI as she is not a operative candidate. She is at high risk for infection if she were to get surgery at her current weight. We discussed nonoperative treatment including injections. Recommend knee cortisone injections as patient would like to proceed with conservative treatment at this time. The risks and benefits of the procedure were reviewed with the patient and patient gave verbal consent to continue with the procedure. Procedure: performed by Dr. Whelan Using sterile technique the Bilateral knees were thoroughly prepped with alcohol, and approximately 1 cc of Kenalog 40 mg/mL and 4 cc of 1% lidocaine was injected into each knee without resistance into the medial tibial femoral joint space. The patient tolerated the procedure. Office Procedures GNS Level of Care Nursing/Assessment Patient Status: Established Patient Nursing Assessment/Reassesment: Medication Reconciliation, Update PMH in EMR and Vital Signs Coordination of Care: Complex Care and Chronic Disease 1-5, Education Complex Pt/Fam, Consent,records obtained, informed consent, Results/Orders obtained and Staff clarify orders Special Needs: Language special needs Established Patient Charge Established Patient Point Assignment: 95 Surgical Proc/IM SQ injection Major Surgical Procedure: Yes (BILATERAL KNEE INJECTION) MA Intake Visit Data Collection New Patient or Established: Established Patient (seen at [facility] within 3 years) Reason for Visit:: 3MTH F/U INJ Seen by Clinical Staff ONLY (RN/MA): No Verbal consent obtained for Telemed visit?: No Director Of Reimbursement Required: Yes PCP or OBGYN visit in last 3 months: Yes Hx Now: No Do You Feel Safe at Home: Yes Authorities Contacted: N/A Questionairres Past Medical History Past Medical History Have you ever been diagnosed with any of the following: Neurological Problems Seizures: No Cardiology Problems Angina: Yes (Mild and short episodes. told her is stress related) Congestive Heart Failure: No Hypertension: Yes Respiratory Problems Chronic Obstructive Pulmonary Disease (COPD): No Smoking: No Smoking Exposure: No Stomache/Intestinal Problems Hepatitis: No Genital/Urinary Problems Renal Disease: No Reproductive Problems Previous Pregnancies: Yes (x5) Musculoskeletal Problems Arthritis: Yes Endocrine Problems Diabetes Mellitus Type 1: No Diabetes Mellitus Type 2: Yes Psychologic Problems Anxiety: Yes Other Problems Falls: Yes Blood Transfusions: No Blood Transfusion Reaction: No Anesthesia Reactions: No Chemotherapy: No Radiation Therapy: No Chicken Pox: Yes Measles: Yes Mumps: Yes Cancer: No Surgical History Additional Surgical History: LIPOMA EXCISION SX 08/02/24 Subjective Visit Visit for: follow up visit, knee and injections Immunization / Flu Flu Vaccine in the Last 12 Months: No Flu Vaccine Exclusion Criteria: No Exclusion Criteria History of Present Illness Chief complaint: REQUESTING BILATERAL KNEE INJECTIONS Patient is a pleasant 58-year-old female with bilateral knee pain and bilateral knee arthritis. She has tried multiple injections. She does have obesity and her BMI is 45. I discussed with her that she likely has to get to a BMI of 40 in order to get surgery in order to minimize complications. She has tried anti-inflammatories as well reports the pain is miserable. She since last time, she reports she has significant pain on the lateral aspect of her hips. She has trochanteric bursitis and minimal arthritis on x-ray Pain Pain level (0-10): 4 Pain duration: COMES AND GOES Pain location: inside (medial), outside (lateral), anterior and posterior Pain quality: sharp, dull and aching Pain timing: night, increases with activity and stairs Associated signs & symptoms: weakness and stiffness Ambulatory data Ambulatory device: none Treatments Improvement with previous injections: No Improvement with PT: No Improvement with NSAIDS: no Review of Systems Review of Systems: All systems negative unless otherwise noted in HPI.
== END 2024-11-16 11:50 | disposition home or self-care (01) ==
LOC: HODSRG 10:41
PROVIDERS: PCP Nurse Practitioner Family; Referring Provider Nurse Practitioner Family; Supervising Provider Orthopaedic Surgery Adult Reconstructive Orthopaedic Surgery; Visit Provider Orthopaedic Surgery Adult Reconstructive Orthopaedic Surgery
DX: M17.0 Bilateral primary osteoarthritis of knee (principal); M25.562 Pain in left knee; M25.561 Pain in right knee; M70.60 Trochanteric bursitis, unspecified hip; E66.9 Obesity, unspecified; Z68.41 Body mass index [BMI] 40.0-44.9, adult; I10 Essential (primary) hypertension; E11.9 Type 2 diabetes mellitus without complications
CPT/HCPCS: 20610; 99213; J3301; J3490; G0463

== ENCOUNTER 2024-11-26 12:41 | Outpatient (AMB) | payer BC, SELFPAY ==
[2024-11-26 12:51] VITALS: BP 161/95; PULSE 76; RESP 19; TEMP 35.9; O2SAT 94; BMI 43.5
--- NOTE | 2024-11-26 12:51 | ORTHONT_ITS ---
Vital signs 11/26/24 12:51 Height 1.63 m Height Method Stated Weight 115.751 kg Weight Measurement Method Standing Scale BMI 43.5 BP 161/95 H Blood Pressure Source Automatic Cuff Blood Pressure Location Left Lower Arm Position Sitting Respiration 19 Pulse 76 Pulse Source Monitor Temp 96.7 F L Temp Source Temporal Artery Scan Pulse Oximetry (%) 94 L Oxygen Delivery Method Room Air Med/Allergies Allergies & Medications Allergies No Known Allergies Allergy (Verified 11/26/24 12:52) Medication Reconciliation metformin 500 mg tablet 500 mg PO HS 04/11/24 [History Confirmed 11/26/24] losartan 50 mg tablet 50 mg PO HS 07/17/24 [History Confirmed 11/26/24] meloxicam 7.5 mg tablet 7.5 mg PO QDAY PRN Pain, Mild 07/17/24 [History Confirmed 11/26/24] tramadol 50 mg tablet 50 mg PO Q8H PRN pain #10 tabs 07/18/24 [Rx Confirmed 11/26/24] Exam Exam Patient is in no acute distress and is cooperative with the examination today. Breathing is nonlabored. Patient has a normal mood and affect. Bilateral extremities were evaluated and demonstrates sensation intact to light touch. Palpable pedal pulses are present. No significant edema is present. Bilateral hips were examined. The patient has no pain with log roll of the hips. Internal rotation to 30 degrees and external rotation to 30 degrees is painless. Negative FADIR. Left knee was examined today. The left knee is in reasonable alignment. Range of motion from 0-120 degrees. Knee is stable to varus and valgus as well as AP translation with <5mm. Patient has a negative McMurrays. There is no pain with patellofemoral compression and no crepitus noted. The knee is nontender to palpation. The right knee was also examined. The right knee is in varus alignment. Range of motion from 0-115 degrees. Knee is stable to varus and valgus as well as AP translation with <5mm. Patient has a negative McMurrays. There is no pain with patellofemoral compression and no crepitus noted. The knee is tender to palpation medially. X-rays demonstrate severe arthritis with complete obliteration of the medial joint space and osteophytes. Assessment and Plan Problem List (1) Arthritis of right knee: Status: Acute Plan: Patient is a 58-year-old female with Trochanteric bursitis of the bilateral hips. The last injections worked quite well and she would like new bilateral hip trochanteric bursitis injections again today. Recommend hip bursa cortisone injection as patient would like to proceed with conservative treatment at this time. The risks and benefits of the procedure were reviewed with the patient and patient gave verbal consent to continue with the procedure. Procedure: performed by Dr. Whelan Using sterile technique the left hip bursa was thoroughly prepped with alcohol prep, and approximately 1 cc of Kenalog 40 mg/mL and 4 cc of 1% Lidocaine was injected without resistance. The patient tolerated the procedure well. Recommend hip bursa cortisone injection as patient would like to proceed with conservative treatment at this time. The risks and benefits of the procedure were reviewed with the patient and patient gave verbal consent to continue with the procedure. Procedure: performed by Dr. Whelan Using sterile technique the right hip bursa was thoroughly prepped with alcohol prep, and approximately 1 cc of Kenalog 40 mg/mL and 4 cc of 1% Lidocaine was injected without resistance. The patient tolerated the procedure well. Office Procedures GNS Level of Care Nursing/Assessment Patient Status: Established Patient Nursing Assessment/Reassesment: Medication Reconciliation, Update PMH in EMR and Vital Signs Coordination of Care: Complex Care and Chronic Disease 1-5, Education Complex Pt/Fam, Consent,records obtained, informed consent, Results/Orders obtained and Staff clarify orders Special Needs: Language special needs Established Patient Charge Established Patient Point Assignment: 95 Established Patient Point Charge: Level 3 (80-115) MA Intake Visit Data Collection New Patient or Established: Established Patient (seen at [facility] within 3 years) Reason for Visit:: HIP BURSA BL INJECTION Seen by Clinical Staff ONLY (RN/MA): No Remote Encoding Operations Supervisor Required: Yes PCP or OBGYN visit in last 3 months: Yes Hx Now: No Do You Feel Safe at Home: Yes Authorities Contacted: N/A Questionairres Past Medical History Past Medical History Have you ever been diagnosed with any of the following: Neurological Problems Seizures: No Cardiology Problems Angina: Yes (Mild and short episodes. told her is stress related) Congestive Heart Failure: No Hypertension: Yes Respiratory Problems Chronic Obstructive Pulmonary Disease (COPD): No Smoking: No Smoking Exposure: No Stomache/Intestinal Problems Hepatitis: No Genital/Urinary Problems Renal Disease: No Reproductive Problems Previous Pregnancies: Yes (x5) Musculoskeletal Problems Arthritis: Yes Endocrine Problems Diabetes Mellitus Type 1: No Diabetes Mellitus Type 2: Yes Psychologic Problems Anxiety: Yes Other Problems Falls: Yes Blood Transfusions: No Blood Transfusion Reaction: No Anesthesia Reactions: No Chemotherapy: No Radiation Therapy: No Chicken Pox: Yes Measles: Yes Mumps: Yes Cancer: No Subjective Visit Visit for: follow up visit and hip (BILATERAL) Immunization / Flu Flu Vaccine in the Last 12 Months: No Flu Vaccine Exclusion Criteria: No Exclusion Criteria History of Present Illness Chief complaint: REQUESTING BILATERAL KNEE INJECTIONS Patient is a pleasant 58-year-old female with bilateral knee pain and bilateral knee arthritis. She has tried multiple injections. She does have obesity and her BMI is 45. I discussed with her that she likely has to get to a BMI of 40 in order to get surgery in order to minimize complications. She has tried anti- inflammatories as well reports the pain is miserable. She since last time, she reports she has significant pain on the lateral aspect of her hips. She has trochanteric bursitis and minimal arthritis on x-ray Pain Pain level (0-10): 10 Pain duration: CONSTANT Pain location: outside (lateral) Pain quality: dull and aching Pain timing: night and increases with activity Associated signs & symptoms: weakness and stiffness Ambulatory data Ambulatory device: none Treatments Improvement with previous injections: No Improvement with PT: No Improvement with NSAIDS: no Review of Systems Review of Systems: All systems negative unless otherwise noted in HPI.
== END 2024-11-26 13:08 | disposition home or self-care (01) ==
LOC: HODSRG 12:41
PROVIDERS: PCP Nurse Practitioner Family; Referring Provider Nurse Practitioner Family; Supervising Provider Orthopaedic Surgery Adult Reconstructive Orthopaedic Surgery; Visit Provider Orthopaedic Surgery Adult Reconstructive Orthopaedic Surgery
DX: M17.0 Bilateral primary osteoarthritis of knee (principal); M70.62 Trochanteric bursitis, left hip; M70.61 Trochanteric bursitis, right hip; M25.562 Pain in left knee; M25.561 Pain in right knee; I10 Essential (primary) hypertension; E66.9 Obesity, unspecified; Z68.41 Body mass index [BMI] 40.0-44.9, adult; E11.9 Type 2 diabetes mellitus without complications
CPT/HCPCS: 20610; 99213; J3301; J3490; G0463

== ENCOUNTER → 2024-12-25 | Outpatient (CLI) | payer BC, SELFPAY ==
[2024-12-25 10:36] LABS: Basophils # (Auto) 0.1 Thou/mm3 (0.0-0.2); Basophils % (Auto) 1 % (0-2.5); Eosinophils # (Auto) 0.2 Thou/mm3 (0.0-0.5); Eosinophils % (Auto) 1 % (0-10); Hematocrit 44.9 % (36.0-46.0); Hemoglobin 14.4 g/dL (12.0-16.0); Immature Granulocytes % (Auto) 1 % (0-0); Lymphocytes # (Auto) 2.8 Thou/mm3 (1.0-4.8); Lymphocytes % (Auto) 21 % (10-50); Mean Corpuscular HGB Conc 32.1 g/dl (31.0-37.0); Mean Corpuscular Hemoglobin 28.1 pg (25.0-35.0); Mean Corpuscular Volume 88 fL (80-100); Monocytes # (Auto) 0.8 Thou/mm3 (0.0-0.8); Monocytes % (Auto) 6 % (0-12); Neutrophils # (Auto) 9.6 Thou/mm3 (1.8-7.7); Neutrophils % (Auto) 71 % (37-80); Nucleated Red Blood Cell % 0 /100 WBC (0); Platelet Count 247 Thou/mm3 (140-440); RDW Standard Deviation 48.2 fL (36.4-46.3); Red Blood Count 5.13 Miln/mm3 (4.00-5.20); White Blood Count 13.5 Thou/mm3 (3.6-11.0)
[2024-12-25 10:47] LABS: Glucose Estimated Average 143 mg/dL (80-131); Hemoglobin A1C 6.6 % Hgb (4.8-6.0)
[2024-12-25 10:59] LABS: Collection Type, Urine Clean Catch
[2024-12-25 11:13] LABS: Vitamin D 25 Hydroxy Total 22.9 ng/mL (7.3-40.2)
[2024-12-25 11:21] LABS: Alanine Aminotransferase 19 U/L (10-49); Albumin, Serum 4.2 gm/dL (3.4-4.8); Albumin/Globulin Ratio 1.6 (1.2-2.2); Alkaline Phosphatase 107 U/L (46-116); Anion Gap 11 (7-16); Aspartate Amino Transferase 18 U/L (0-34); BUN/Creatinine Ratio 14 Ratio (12-20); Bilirubin,Total 0.4 mg/dL (0.3-1.2); Blood Urea Nitrogen 11 mg/dL (9-23); Calcium 9.2 mg/dL (8.3-10.6); Calcium (Corrected) 9.2 mg/dL (8.5-10.1); Chloride 107 mMol/L (98-107); Cholesterol 191 mg/dL (132-200); Creatinine (Component) 0.8 mg/dL (0.6-1.3); Globulin 2.7 gm/dL (2.3-3.5); Glucose 122 mg/dL (74-106); HDL Cholesterol 64 mg/dL (40-60); LDL Cholesterol,Calculated 106 mg/dL (0-130); Osmolality,Calculated 287 (275-295); Potassium 4.2 mMol/L (3.4-5.1); Sodium 144 mMol/L (136-145); Thyroid Stimulating Hormone 4.53 uIU/mL (0.55-4.78); Total Protein 6.9 gm/dL (5.7-8.2); Triglycerides 107 mg/dL (30-150); eGFR > 60 See Note
[2024-12-25 11:32] LABS: Bilirubin,Urine Negative (Negative); Blood,Urine Negative (Negative); Clarity,Urine Clear (Clear/Hazy); Color,Urine Yellow (Lt Yel-Yel); Glucose, Urine Negative (Negative); Ketones,Urine Negative (Negative); Leukocyte Esterase,Urine Positive (Negative); Nitrite,Urine Negative (Negative); Protein,Urine Trace (Neg - Trace); RBC,Urine 4 /hpf (0-3); Specific Gravity,Urine 1.028 (1.001-1.035); Squamous Epithelial Cell,Urine 8 /hpf (0-5); Urobilinogen,Urine Negative mg/dL (0.0-1.0); WBC,Urine 3 /hpf (0-5)
[2024-12-25 11:48] LABS: Creatinine MALB Rnd Ur 201 mg/dL (30-125); Microalbumin Creat Ratio 6 mg/gCrea (<30); Microalbumin, Random Urine 12 mg/L (0-300)
== END | disposition home or self-care (01) ==
LOC: COPL 10:04
PROVIDERS: PCP Nurse Practitioner Family; Referring Provider Nurse Practitioner Family; Visit Provider Nurse Practitioner Family
DX: E11.9 Type 2 diabetes mellitus without complications (principal); Z79.899 Other long term (current) drug therapy
CPT/HCPCS: 36415; 80053; 80061; 81001; 82043; 82306; 82570; 83036; 84439; 84443; 85025

== ENCOUNTER → 2025-02-08 | Outpatient (CLI) | payer BC, SELFPAY ==
--- NOTE | 2025-02-08 14:15 | XR_ITS ---
Examination: Screening digital mammography, bilateral Computer aided detection 3-D breast Tomosynthesis, bilateral Date and time of exam: February 08, 2025 1403 hours Compared to mammograms dating to April 01, 2018 Indication: Screening Technique: Nonmagnified MLO, CC views of the breasts to been obtained, reconstructed from 3-D Tomosynthesis images. R2 computer aided detection program utilized for evaluation of suspicious masses and/or abnormal calcifications. 3-D Tomosynthesis images obtained. Findings: Scattered areas of fibroglandular density Benign calcifications. No interval suspicious masses Impression: BI-RADS category II: Benign Findings. Recommend 1 year follow-up mammogram.
== END | disposition home or self-care (01) ==
LOC: CDIM 13:35
PROVIDERS: Referring Provider Nurse Practitioner Family; Visit Provider Nurse Practitioner Family
DX: Z12.31 Encounter for screening mammogram for malignant neoplasm of breast (principal); R92.323 Mammographic fibroglandular density, bilateral breasts; R92.1 Mammographic calcification found on diagnostic imaging of breast
CPT/HCPCS: 77063; 77067

== ENCOUNTER 2025-02-26 13:12 | Outpatient (AMB) | payer BC, SELFPAY ==
--- NOTE | 2025-02-26 13:23 | PD.ORTHCLVIS ---
Vital signs 02/26/25 13:24 Height 1.63 m Height Method Stated Weight 118.444 kg Weight Measurement Method Standing Scale BMI 44.6 BP 187/109 H Blood Pressure Source Automatic Cuff Blood Pressure Location Left Upper Arm Position Sitting Respiration 18 Pulse 84 Pulse Source Monitor Temp 97.4 F Temp Source Temporal Artery Scan Pulse Oximetry (%) 97 Oxygen Delivery Method Room Air Med/Allergies Allergies & Medications Allergies No Known Allergies Allergy (Verified 02/26/25 13:24) Medication Reconciliation metformin 500 mg tablet 500 mg PO HS 04/11/24 [History Confirmed 02/26/25] losartan 50 mg tablet 50 mg PO HS 07/17/24 [History Confirmed 02/26/25] meloxicam 7.5 mg tablet 7.5 mg PO QDAY PRN Pain, Mild 07/17/24 [History Confirmed 02/26/25] tramadol 50 mg tablet 50 mg PO Q8H PRN pain #10 tabs 07/18/24 [Rx Confirmed 02/26/25] Exam Exam Patient is in no acute distress and is cooperative with the examination today. Breathing is nonlabored. Patient has a normal mood and affect. Bilateral extremities were evaluated and demonstrates sensation intact to light touch. Palpable pedal pulses are present. No significant edema is present. Bilateral hips were examined. The patient has no pain with log roll of the hips. Internal rotation to 30 degrees and external rotation to 30 degrees is painless. Negative FADIR. Left knee was examined today. The left knee is in reasonable alignment. Range of motion from 0-120 degrees. Knee is stable to varus and valgus as well as AP translation with <5mm. Patient has a negative McMurrays. There is no pain with patellofemoral compression and no crepitus noted. The knee is nontender to palpation. The right knee was also examined. The right knee is in varus alignment. Range of motion from 0-115 degrees. Knee is stable to varus and valgus as well as AP translation with <5mm. Patient has a negative McMurrays. There is no pain with patellofemoral compression and no crepitus noted. The knee is tender to palpation medially. X-rays demonstrate severe arthritis with complete obliteration of the medial joint space and osteophytes. Assessment and Plan Problem List (1) Arthritis of right knee: Status: Acute Plan: Patient is a 58-year-old female with bilateral knee arthritis. The last injections worked quite well and she would like bilateral knee injections today Recommend knee cortisone injections as patient would like to proceed with conservative treatment at this time. The risks and benefits of the procedure were reviewed with the patient and patient gave verbal consent to continue with the procedure. Procedure: performed by Dr. Whelan Using sterile technique the Bilateral knees were thoroughly prepped with alcohol, and approximately 1 cc of Kenalog 40 mg/mL and 4 cc of 1% lidocaine was injected into each knee without resistance into the medial tibial femoral joint space. The patient tolerated the procedure. She reports that she has difficulty showering standing up and we will thus get her a shower chair Office Procedures GNS Level of Care Nursing/Assessment Patient Status: Established Patient Nursing Assessment/Reassesment: Medication Reconciliation, Update PMH in EMR and Vital Signs Coordination of Care: Complex Care and Chronic Disease 1-5, Education Complex Pt/Fam, Consent,records obtained, informed consent, Results/Orders obtained and Staff clarify orders Special Needs: Language special needs Established Patient Charge Established Patient Point Assignment: 95 Established Patient Point Charge: EP Level 3 (80-115) Surgical Proc/IM SQ injection Major Surgical Procedure: Yes (BILATERAL KNEE INJECTION ) Medication Given Medication Given Medication Given: Yes Documented Dose Given: 8 Route: Infiitration Medication Given Medication Given Medication Given: Yes Documented Dose Given: 2 Route: Infiitration Office Meds Xylocaine 10 mg/mL (1 %) injection solution Performing Provider: Juan Whelan MD Performing Location: [facility] Administered by: Juan Whelan MD on 02/26/25 15:19 Dose Route Admin Location Dispensed Lot Number Expiration Date [facility] Paint Coating Machine Operator 40 mL Infiltration 40 mL [id number] [facility] triamcinolone acetonide 40 mg/mL suspension for injection Performing Provider: Juan Whelan MD Performing Location: [facility] Administered by: Juan Whelan MD on 02/26/25 15:19 Dose Route Admin Location Dispensed Lot Number Expiration Date [facility] Paint Co[employer] Machine Operator 80 mg intra-articular 2 mL [id number] MINOO RODRÍGUEZ MA Intake Visit Data Collection New Patient or Established: Established Patient (seen at [facility] within 3 years) Reason for Visit:: BL KNEE INJECTION Seen by Clinical Staff ONLY (RN/MA): No Motorcycle Police Required: Yes PCP or OBGYN visit in last 3 months: Yes Hx Now: No Do You Feel Safe at Home: Yes Authorities Contacted: N/A Questionairres Past Medical History Past Medical History Have you ever been diagnosed with any of the following: Neurological Problems Seizures: No Cardiology Problems Angina: Yes (Mild and short episodes. MD told her is stress related) Congestive Heart Failure: No Hypertension: Yes Respiratory Problems Chronic Obstructive Pulmonary Disease (COPD): No Smoking: No Smoking Exposure: No Stomache/Intestinal Problems Hepatitis: No Genital/Urinary Problems Renal Disease: No Reproductive Problems Previous Pregnancies: Yes (x5) Musculoskeletal Problems Arthritis: Yes Endocrine Problems Diabetes Mellitus Type 1: No Diabetes Mellitus Type 2: Yes Psychologic Problems Anxiety: Yes Other Problems Falls: Yes Blood Transfusions: No Blood Transfusion Reaction: No Anesthesia Reactions: No Chemotherapy: No Radiation Therapy: No Chicken Pox: Yes Measles: Yes Mumps: Yes Cancer: No Subjective Visit Visit for: follow up visit, hip (BILATERAL), knee (BILATERAL ) and injections Immunization / Flu Flu Vaccine in the Last 12 Months: No Flu Vaccine Exclusion Criteria: No Exclusion Criteria History of Present Illness Chief complaint: REQUESTING BILATERAL KNEE INJECTIONS Patient is a pleasant 58-year-old female with bilateral knee pain and bilateral knee arthritis. She has tried multiple injections. She does have obesity and her BMI is 45. I discussed with her that she likely has to get to a BMI of 40 in order to get surgery in order to minimize complications. She has tried anti-inflammatories as well reports the pain is miserable. Pain Pain level (0-10): 10 Pain duration: CONSTANT Pain location: inside (medial), outside (lateral) and anterior Pain quality: dull and aching Pain timing: night, increases with activity and stairs Associated signs & symptoms: numbness, weakness and stiffness Ambulatory data Ambulatory device: none Treatments Number of previous injections: 2 Improvement with previous injections: No Improvement with PT: No Improvement with NSAIDS: no Review of Systems Review of Systems: All systems negative unless otherwise noted in HPI.
[2025-02-26 13:24] VITALS: BP 187/109; PULSE 84; RESP 18; TEMP 36.3; O2SAT 97; BMI 44.6
== END 2025-02-26 13:32 | disposition home or self-care (01) ==
PROVIDERS: PCP Nurse Practitioner Family; Referring Provider Nurse Practitioner Family; Supervising Provider Orthopaedic Surgery Adult Reconstructive Orthopaedic Surgery; Visit Provider Orthopaedic Surgery Adult Reconstructive Orthopaedic Surgery
DX: M17.0 Bilateral primary osteoarthritis of knee (principal); M25.562 Pain in left knee; M25.561 Pain in right knee; E66.9 Obesity, unspecified; Z68.41 Body mass index [BMI] 40.0-44.9, adult; E11.9 Type 2 diabetes mellitus without complications; I10 Essential (primary) hypertension
CPT/HCPCS: 20610; 99213; J3301; J3490; G0463

== ENCOUNTER 2025-03-14 13:13 | Outpatient (AMB) | payer BC, SELFPAY ==
--- NOTE | 2025-03-14 13:22 | PD.ORTHCLVIS ---
Vital signs 03/14/25 13:31 Height 1.63 m Height Method Measured Weight 116.715 kg BMI 43.9 BP 167/100 H Blood Pressure Source Automatic Cuff Blood Pressure Location Left Upper Arm Position Sitting Respiration 18 Pulse 78 Pulse Source Monitor Temp 97.1 F Temp Source Temporal Artery Scan Pulse Oximetry (%) 98 Oxygen Delivery Method Room Air Med/Allergies Allergies & Medications Allergies No Known Allergies Allergy (Verified 03/14/25 13:44) Medication Reconciliation metformin 500 mg tablet 500 mg PO HS 04/11/24 [History Confirmed 03/14/25] losartan 50 mg tablet 50 mg PO HS 07/17/24 [History Confirmed 03/14/25] meloxicam 7.5 mg tablet 7.5 mg PO QDAY PRN Pain, Mild 07/17/24 [History Confirmed 03/14/25] tramadol 50 mg tablet 50 mg PO Q8H PRN pain #10 tabs 07/18/24 [Rx Confirmed 03/14/25] Exam Exam Patient is in no acute distress and is cooperative with the examination today. Breathing is nonlabored. Patient has a normal mood and affect. Bilateral extremities were evaluated and demonstrates sensation intact to light touch. Palpable pedal pulses are present. No significant edema is present. Bilateral hips were examined. The patient has no pain with log roll of the hips. Internal rotation to 30 degrees and external rotation to 30 degrees is painless. Negative FADIR. Left knee was examined today. The left knee is in reasonable alignment. Range of motion from 0-120 degrees. Knee is stable to varus and valgus as well as AP translation with <5mm. Patient has a negative McMurrays. There is no pain with patellofemoral compression and no crepitus noted. The knee is nontender to palpation. The right knee was also examined. The right knee is in varus alignment. Range of motion from 0-115 degrees. Knee is stable to varus and valgus as well as AP translation with <5mm. Patient has a negative McMurrays. There is no pain with patellofemoral compression and no crepitus noted. The knee is tender to palpation medially. X-rays demonstrate severe arthritis with complete obliteration of the medial joint space and osteophytes. Assessment and Plan Problem List (1) Arthritis of right knee: Status: Acute Plan: Patient is a 58-year-old female with bilateral knee arthritis. (2) Trochanteric bursitis of both hips: Status: Acute Plan: Patient is a pleasant 59-year-old female with bilateral hip pain and trochanteric bursitis. We discussed different treatment options. We discussed anti-inflammatories, injections, and physical therapy. She would like bilateral hip bursa injections today Recommend hip bursa cortisone injection as patient would like to proceed with conservative treatment at this time. The risks and benefits of the procedure were reviewed with the patient and patient gave verbal consent to continue with the procedure. Procedure: performed by Dr. Whelan Using sterile technique the bilateral hips bursa were thoroughly prepped with alcohol prep, and 1 cc of Depo-Medrol 80 and 0.2% ropivacaine 4 cc was injected with 1 syringe into each hip without resistance . The patient tolerated the procedure well. Office Procedures GNS Level of Care Nursing/Assessment Patient Status: Established Patient Nursing Assessment/Reassesment: Medication Reconciliation, Update PMH in EMR and Vital Signs Coordination of Care: Complex Care and Chronic Disease 1-5, Education Complex Pt/Fam, Consent,records obtained, informed consent, Results/Orders obtained and Staff clarify orders Special Needs: Language special needs Established Patient Charge Established Patient Point Assignment: 95 Established Patient Point Charge: EP Level 3 (80-115) Surgical Proc/IM SQ injection Major Surgical Procedure: Yes (BILATERAL HIP INJECTION ) Medication Given Medication Given Medication Given: Yes Documented Dose Given: 1 Route: Infiitration Medication Given Medication Given Medication Given: Yes Documented Dose Given: 1 Route: Infiitration Medication Given Medication Given Medication Given: Yes Documented Dose Given: 4 Route: Infiitration Medication Given Medication Given Medication Given: Yes Documented Dose Given: 4 Route: Infiitration Office Meds methylprednisolone acetate 80 mg/mL suspension for injection Performing Provider: Juan Whelan MD Performing Location: [facility] Administered by: Juan Whelan MD on 03/14/25 13:48 Dose Route Admin Location Dispensed Lot Number Expiration Date [facility] Tassel Maker 80 mg intra-articular HIP 1 mL [id number] 01/12/27 [address]-5 [employer] methylprednisolone acetate 80 mg/mL suspension for injection Performing Provider: Juan Whelan MD Performing Location: [facility] Administered by: Juan Whelan MD on 03/14/25 13:48 Dose Route Admin Location Dispensed Lot Number Expiration Date [facility] Tassel Maker 80 mg intra-articular HIP 1 mL [id number] 01/12/27 [address]-4 [employer] ropivacaine (PF) 2 mg/mL (0.2 %) injection solution Performing Provider: Juan Whelan MD Performing Location: [facility] Administered by: Juan Whelan MD on 03/14/25 13:48 Dose Route Admin Location Dispensed Lot Number Expiration Date [facility] Tassel Maker 20 mL Infiltration HIP 20 mL [id number] 06/14/26 43817-078-59 [facility] ropivacaine (PF) 2 mg/mL (0.2 %) injection solution Performing Provider: Juan Whelan MD Performing Location: [facility] Administered by: Juan Whelan MD on 03/14/25 13:48 Dose Route Admin Location Dispensed Lot Number Expiration Date [facility] Tassel Maker 20 mL Infiltration HIP 20 mL [id number] 06/14/25 43264-743-43 [facility] Intake Visit Data Collection New Patient or Established: Established Patient (seen at [facility] within 3 years) Reason for Visit:: BILATERAL HIP INJECTION Seen by Clinical Staff ONLY (RN/MA): No Financial Operations Clerk Required: Yes PCP or OBGYN visit in last 3 months: Yes Hx Now: No Do You Feel Safe at Home: Yes Authorities Contacted: N/A Questionairres Past Medical History Past Medical History Have you ever been diagnosed with any of the following: Neurological Problems Seizures: No Cardiology Problems Angina: Yes (Mild and short episodes. MD told her is stress related) Congestive Heart Failure: No Hypertension: Yes Respiratory Problems Chronic Obstructive Pulmonary Disease (COPD): No Smoking: No Smoking Exposure: No Stomache/Intestinal Problems Hepatitis: No Genital/Urinary Problems Renal Disease: No Reproductive Problems Previous Pregnancies: Yes (x5) Musculoskeletal Problems Arthritis: Yes Endocrine Problems Diabetes Mellitus Type 1: No Diabetes Mellitus Type 2: Yes Psychologic Problems Anxiety: Yes Other Problems Falls: Yes Blood Transfusions: No Blood Transfusion Reaction: No Anesthesia Reactions: No Chemotherapy: No Radiation Therapy: No Chicken Pox: Yes Measles: Yes Mumps: Yes Cancer: No Subjective Visit Visit for: follow up visit, hip (BILATERAL), knee (BILATERAL ) and injections Immunization / Flu Flu Vaccine in the Last 12 Months: No Flu Vaccine Exclusion Criteria: No Exclusion Criteria History of Present Illness Chief complaint: REQUESTING BILATERAL KNEE INJECTIONS Patient is a pleasant 58-year-old female with bilateral knee pain and bilateral knee arthritis. She has tried multiple injections. She does have obesity and her BMI is 45. I discussed with her that she likely has to get to a BMI of 40 in order to get surgery in order to minimize complications. She has tried anti-inflammatories as well reports the pain is miserable. The last knee injections bilaterally did not work for very long. She does have significant bilateral hip pain on the lateral aspect of her hips. Her x-rays are normal. She has trochanteric bursitis and cannot sleep at night. Pain Pain level (0-10): 10 Pain duration: CONSTANT Pain location: inside (medial), outside (lateral) and anterior Pain quality: dull and aching Pain timing: night, increases with activity and stairs Associated signs & symptoms: numbness, weakness and stiffness Ambulatory data Ambulatory device: none Treatments Number of previous injections: 2 Improvement with previous injections: No Improvement with PT: No Improvement with NSAIDS: no Review of Systems Review of Systems: All systems negative unless otherwise noted in HPI.
[2025-03-14 13:31] VITALS: BP 167/100; PULSE 78; RESP 18; TEMP 36.2; O2SAT 98; BMI 43.9
== END 2025-03-14 13:42 | disposition home or self-care (01) ==
PROVIDERS: Supervising Provider Orthopaedic Surgery Adult Reconstructive Orthopaedic Surgery; Visit Provider Orthopaedic Surgery Adult Reconstructive Orthopaedic Surgery
DX: M17.0 Bilateral primary osteoarthritis of knee (principal); M25.552 Pain in left hip; M25.551 Pain in right hip; M70.61 Trochanteric bursitis, right hip; M70.62 Trochanteric bursitis, left hip; I10 Essential (primary) hypertension; E11.9 Type 2 diabetes mellitus without complications; E66.9 Obesity, unspecified; Z68.41 Body mass index [BMI] 40.0-44.9, adult
CPT/HCPCS: 20610; 99213; J1010; J2795; G0463

== ENCOUNTER 2025-07-04 10:22 | Outpatient (AMB) | payer BC, SELFPAY ==
[2025-07-04 10:52] VITALS: BP 151/91; PULSE 80; RESP 19; TEMP 36.3; O2SAT 95; BMI 42.8
--- NOTE | 2025-07-04 10:52 | ORTHONT_ITS ---
Vital signs 07/04/25 10:52 07/04/25 10:56 Height 1.63 m 1.63 m Height Method Stated Stated Weight 113.88 kg 113.88 kg Weight Measurement Method Standing Scale Standing Scale BMI 42.8 42.8 BP 151/91 H 151/91 H Blood Pressure Source Automatic Cuff Automatic Cuff Blood Pressure Location Left Lower Arm Right Upper Arm Position Sitting Sitting Respiration 19 19 Pulse 80 80 Pulse Source Monitor Monitor Temp 97.4 F 97.4 F Temp Source Temporal Artery Scan Temporal Artery Scan Pulse Oximetry (%) 95 95 Oxygen Delivery Method Room Air Room Air Med/Allergies Allergies & Medications Allergies No Known Allergies Allergy (Verified 07/04/25 10:57) Medication Reconciliation metformin 500 mg tablet 500 mg PO HS 04/11/24 [History Confirmed 07/04/25] losartan 50 mg tablet 50 mg PO HS 07/17/24 [History Confirmed 07/04/25] meloxicam 7.5 mg tablet 7.5 mg PO QDAY PRN Pain, Mild 07/17/24 [History Confirmed 07/04/25] tramadol 50 mg tablet 50 mg PO Q8H PRN pain #10 tabs 07/18/24 [Rx Confirmed 07/04/25] Exam Exam Patient is in no acute distress and is cooperative with the examination today. Breathing is nonlabored. Patient has a normal mood and affect. Bilateral extremities were evaluated and demonstrates sensation intact to light touch. Palpable pedal pulses are present. No significant edema is present. Bilateral hips were examined. The patient has no pain with log roll of the hips. Internal rotation to 30 degrees and external rotation to 30 degrees is painless. Negative FADIR. Left knee was examined today. The left knee is in reasonable alignment. Range of motion from 0-120 degrees. Knee is stable to varus and valgus as well as AP translation with <5mm. Patient has a negative McMurrays. There is no pain with patellofemoral compression and no crepitus noted. The knee is nontender to palpation. The right knee was also examined. The right knee is in varus alignment. Range of motion from 0-115 degrees. Knee is stable to varus and valgus as well as AP translation with <5mm. Patient has a negative McMurrays. There is no pain with patellofemoral compression and no crepitus noted. The knee is tender to palpation medially. X-rays demonstrate severe arthritis with complete obliteration of the medial joint space and osteophytes. Assessment and Plan Problem List (1) Arthritis of right knee: Status: Acute Plan: Patient is a 58-year-old female with bilateral knee arthritis. Recommend knee cortisone injections as patient would like to proceed with conservative treatment at this time. The risks and benefits of the procedure were reviewed with the patient and patient gave verbal consent to continue with the procedure. Procedure: performed by Dr. Whelan Using sterile technique the Bilateral knees were thoroughly prepped with alcohol, and approximately 1 cc of Kenalog 40 mg/mL and 4 cc of 1% lidocaine was injected into each knee without resistance into the medial tibial femoral joint space. The patient tolerated the procedure. (2) Trochanteric bursitis of both hips: Status: Acute Plan: Patient is a pleasant 59-year-old female with bilateral hip pain and trochanteric bursitis. We discussed different treatment options. We discussed anti-inflammatories, injections, and physical therapy. She would like bilateral knee injections today Office Procedures GNS Level of Care Nursing/Assessment Patient Status: Established Patient Nursing Assessment/Reassesment: Medication Reconciliation, Update PMH in EMR and Vital Signs Coordination of Care: Complex Care and Chronic Disease 1-5, Education Complex Pt/Fam, Consent,records obtained, informed consent, 1 Ins Authorization, Results/Orders obtained and Staff clarify orders Special Needs: Language special needs Established Patient Charge Established Patient Point Assignment: 110 Established Patient Point Charge: EP Level 3 (80-115) Surgical Proc/IM SQ injection Minor Surgical Procedure: Yes (BILATERAL KNEE INJECTIONS ) Medication Given Medication Given Medication Given: Yes Documented Dose Given: 2 Route: Infiitration Medication Given Medication Given Medication Given: Yes Documented Dose Given: 8 Route: Infiitration Office Meds methylprednisolone acetate 80 mg/mL suspension for injection Performing Provider: Juan Whelan MD Performing Location: [facility] Administered by: Juan Whelan MD on 07/04/25 11:48 Dose Route Admin Location Dispensed Lot Number Expiration Date Pack age [facility] Multimedia Programmer 160 mg intra-articular KNEE 2 mL [id number] 03/14/27 [address]-2 [id number] [employer] ropivacaine (PF) 2 mg/mL (0.2 %) injection solution Performing Provider: Juan Whelan MD Performing Location: [facility] Administered by: Juan Whelan MD on 07/04/25 11:48 Dose Route Admin Location Dispensed Lot Number Expiration Date Pack age [facility] Multimedia Programmer 40 mL Infiltration KNEE 40 mL [id number] 09/14/27 45848-607-04 [id number] [facility] Intake Visit Data Collection New Patient or Established: Established Patient (seen at [facility] within 3 years) Reason for Visit:: BILATERAL KNEE INJECTIONS Seen by Clinical Staff ONLY (RN/MA): No Verbal consent obtained for Telemed visit?: No Entry Level Electrical Engineer Required: Yes PCP or OBGYN visit in last 3 months: Yes Hx Now: No Do You Feel Safe at Home: Yes Authorities Contacted: N/A Questionairres Past Medical History Past Medical History Have you ever been diagnosed with any of the following: Neurological Problems Seizures: No Cardiology Problems Angina: Yes (Mild and short episodes. told her is stress related) Congestive Heart Failure: No Hypertension: Yes Respiratory Problems Chronic Obstructive Pulmonary Disease (COPD): No Smoking: No Smoking Exposure: No Stomache/Intestinal Problems Hepatitis: No Genital/Urinary Problems Renal Disease: No Reproductive Problems Previous Pregnancies: Yes (x5) Musculoskeletal Problems Arthritis: Yes Endocrine Problems Diabetes Mellitus Type 1: No Diabetes Mellitus Type 2: Yes Psychologic Problems Anxiety: Yes Other Problems Falls: Yes Blood Transfusions: No Blood Transfusion Reaction: No Anesthesia Reactions: No Chemotherapy: No Radiation Therapy: No Chicken Pox: Yes Measles: Yes Mumps: Yes Cancer: No Subjective Visit Visit for: follow up visit, hip (BILATERAL), knee (BILATERAL ) and injections Immunization / Flu Flu Vaccine in the Last 12 Months: No Flu Vaccine Exclusion Criteria: No Exclusion Criteria History of Present Illness Chief complaint: REQUESTING BILATERAL KNEE INJECTIONS Patient is a pleasant 58-year-old female with bilateral knee pain and bilateral knee arthritis. She has tried multiple injections. She does have obesity and her BMI is 43. I discussed with her that she likely has to get to a BMI of 40 in order to get surgery in order to minimize complications. She has tried anti- inflammatories as well reports the pain is miserable. The last knee injections bilaterally did not work for very long. She does have significant bilateral hip pain on the lateral aspect of her hips. Her x-rays are normal. She has trochanteric bursitis and cannot sleep at night. Pain Pain level (0-10): 10 Pain duration: CONSTANT Pain location: inside (medial), outside (lateral) and anterior Pain quality: dull and aching Pain timing: night, increases with activity and stairs Associated signs & symptoms: numbness, weakness, stiffness and none Ambulatory data Ambulatory device: none Treatments Number of previous injections: 2 Improvement with previous injections: No Improvement with PT: No Improvement with NSAIDS: no Review of Systems Review of Systems: All systems negative unless otherwise noted in HPI.
[2025-07-04 10:56] VITALS: BP 151/91; PULSE 80; RESP 19; TEMP 36.3; O2SAT 95; BMI 42.8
== END 2025-07-04 11:06 | disposition home or self-care (01) ==
LOC: HODSRG 10:22
PROVIDERS: Supervising Provider Orthopaedic Surgery Adult Reconstructive Orthopaedic Surgery; Visit Provider Orthopaedic Surgery Adult Reconstructive Orthopaedic Surgery
DX: M25.562 Pain in left knee (principal); M25.561 Pain in right knee; M17.0 Bilateral primary osteoarthritis of knee; M70.62 Trochanteric bursitis, left hip; M70.61 Trochanteric bursitis, right hip; E66.9 Obesity, unspecified; Z68.41 Body mass index [BMI] 40.0-44.9, adult; I10 Essential (primary) hypertension; E11.9 Type 2 diabetes mellitus without complications; Z79.84 Long term (current) use of oral hypoglycemic drugs
CPT/HCPCS: 20610; 99213; J1010; J2795; G0463

== ENCOUNTER 2025-08-02 09:33 | Outpatient (AMB) | payer BC, SELFPAY ==
--- NOTE | 2025-08-02 09:45 | PD.ORTHCLVIS ---
Vital signs 08/02/25 09:49 Height 1.63 m Height Method Measured Weight 111.272 kg Weight Measurement Method Standing Scale BMI 41.8 BP 153/88 H Blood Pressure Source Automatic Cuff Blood Pressure Location Left Upper Arm Position Sitting Respiration 18 Pulse 92 Pulse Source Monitor Temp 97.4 F Temp Source Temporal Artery Scan Pulse Oximetry (%) 95 Oxygen Delivery Method Room Air Med/Allergies Allergies & Medications Allergies No Known Allergies Allergy (Verified 08/02/25 09:49) Medication Reconciliation metformin 500 mg tablet 500 mg PO HS 04/11/24 [History Confirmed 08/02/25] losartan 50 mg tablet 50 mg PO HS 07/17/24 [History Confirmed 08/02/25] meloxicam 7.5 mg tablet 7.5 mg PO QDAY PRN Pain, Mild 07/17/24 [History Confirmed 08/02/25] tramadol 50 mg tablet 50 mg PO Q8H PRN pain #10 tabs 07/18/24 [Rx Confirmed 08/02/25] Office Procedures GNS Level of Care Nursing/Assessment Patient Status: Established Patient Nursing Assessment/Reassesment: Medication Reconciliation, Update PMH in EMR and Vital Signs Coordination of Care: Complex Care and Chronic Disease 1-5, Education Complex Pt/Fam, Consent,records obtained, informed consent, Results/Orders obtained and Staff clarify orders Special Needs: Language special needs Established Patient Charge Established Patient Point Assignment: 95 Established Patient Point Charge: EP Level 3 (80-115) Surgical Proc/IM SQ injection Minor Surgical Procedure: Yes (HIP INJECTION) Medication Given Medication Given Medication Given: Yes Documented Dose Given: 2 Route: Infiitration Medication Given Medication Given Medication Given: Yes Documented Dose Given: 8 Route: Infiitration Office Meds methylprednisolone acetate 80 mg/mL suspension for injection Performing Provider: Juan Whelan MD Performing Location: [facility] Administered by: Juan Whelan MD on 08/02/25 11:25 Dose Route Admin Location Dispensed Lot Number Expiration Date Package [facility] Senior Marketing Engineer 160 mg intra-articular KNEE 2 mL [id number] 04/13/27 [address]-8 [id number] [employer] ropivacaine (PF) 2 mg/mL (0.2 %) injection solution Performing Provider: Juan Whelan MD Performing Location: [facility] Administered by: Juan Whelan MD on 08/02/25 11:25 Dose Route Admin Location Dispensed Lot Number Expiration Date Package [employer] Senior Marketing Engineer 40 mL Infiltration KNEE 40 mL [id number] 01/11/27 9932-1459-01 [id number] [facility] [place] Intake Visit Data Collection New Patient or Established: Established Patient (seen at [facility] within 3 years) Reason for Visit:: HIP INJECTION Seen by Clinical Staff ONLY (RN/MA): No Verbal consent obtained for Telemed visit?: No Machine Feeder Required: Yes PCP or OBGYN visit in last 3 months: Yes Hx Now: No Do You Feel Safe at Home: Yes Authorities Contacted: N/A Questionairres Past Medical History Past Medical History Have you ever been diagnosed with any of the following: Neurological Problems Seizures: No Cardiology Problems Angina: Yes (Mild and short episodes. told her is stress related) Congestive Heart Failure: No Hypertension: Yes Respiratory Problems Chronic Obstructive Pulmonary Disease (COPD): No Smoking: No Smoking Exposure: No Stomache/Intestinal Problems Hepatitis: No Genital/Urinary Problems Renal Disease: No Reproductive Problems Previous Pregnancies: Yes (x5) Musculoskeletal Problems Arthritis: Yes Endocrine Problems Diabetes Mellitus Type 1: No Diabetes Mellitus Type 2: Yes Psychologic Problems Anxiety: Yes Other Problems Falls: Yes Blood Transfusions: No Blood Transfusion Reaction: No Anesthesia Reactions: No Chemotherapy: No Radiation Therapy: No Chicken Pox: Yes Measles: Yes Mumps: Yes Cancer: No Subjective Visit Visit for: follow up visit, hip (BILATERAL) and injections Immunization / Flu Flu Vaccine in the Last 12 Months: No Flu Vaccine Exclusion Criteria: No Exclusion Criteria History of Present Illness Chief complaint: HIP INJECTIONS Patient is a pleasant 58-year-old female with bilateral knee pain and bilateral knee arthritis. She has tried multiple injections. She does have obesity and her BMI is 43. I discussed with her that she likely has to get to a BMI of 40 in order to get surgery in order to minimize complications. She has tried anti-inflammatories as well reports the pain is miserable. The last knee injections bilaterally did not work for very long. She does have significant bilateral hip pain on the lateral aspect of her hips. Her x-rays are normal. She has trochanteric bursitis and cannot sleep at night. Recommend hip bursa cortisone injection as patient would like to proceed with conservative treatment at this time. The risks and benefits of the procedure were reviewed with the patient and patient gave verbal consent to continue with the procedure. Procedure: performed by Dr. Whelan Using sterile technique the left hip bursa was thoroughly prepped with alcohol prep, and approximately 1 cc of Depo-Medrol 80 mg/mL and 4 cc of 0.2%ropivacaine. Was injected without resistance. The patient tolerated the procedure well. Recommend hip bursa cortisone injection as patient would like to proceed with conservative treatment at this time. The risks and benefits of the procedure were reviewed with the patient and patient gave verbal consent to continue with the procedure. Procedure: performed by Dr. Whelan Using sterile technique the right hip bursa was thoroughly prepped with alcohol prep, and approximately 1 cc of Depo-Medrol 80 mg/mL and 4 cc of 0.2%ropivacaine. Was injected without resistance. The patient tolerated the procedure well. Pain Pain level (0-10): 10 Pain duration: CONSTANT Pain location: inside (medial), outside (lateral) and anterior Pain quality: dull and aching Pain timing: night, increases with activity and stairs Associated signs & symptoms: numbness, weakness, stiffness and none Ambulatory data Ambulatory device: none Treatments Number of previous injections: 2 Improvement with previous injections: No Improvement with PT: No Improvement with NSAIDS: no Review of Systems Review of Systems: All systems negative unless otherwise noted in HPI.
[2025-08-02 09:49] VITALS: BP 153/88; PULSE 92; RESP 18; TEMP 36.3; O2SAT 95; BMI 41.8
== END 2025-08-02 10:03 | disposition home or self-care (01) ==
LOC: HODSRG 09:33
PROVIDERS: Supervising Provider Orthopaedic Surgery Adult Reconstructive Orthopaedic Surgery; Visit Provider Orthopaedic Surgery Adult Reconstructive Orthopaedic Surgery
DX: M70.62 Trochanteric bursitis, left hip (principal); M70.61 Trochanteric bursitis, right hip; M25.562 Pain in left knee; M25.561 Pain in right knee; M17.0 Bilateral primary osteoarthritis of knee; E66.9 Obesity, unspecified; Z68.41 Body mass index [BMI] 40.0-44.9, adult; M25.552 Pain in left hip; M25.551 Pain in right hip; I10 Essential (primary) hypertension
CPT/HCPCS: 20610; 99213; J1010; J2795; G0463